=== PATIENT | female | born 1960 | race Caucasian/White ===

== ENCOUNTER 2016-08-15 15:18 | Emergency (ER) | payer MEDICARE, MEDICAID ==
--- NOTE | 2016-08-15 15:58 | ERNOTE ---
Dyspnea - Date Date of Service: 08/15/16 - General Presenting Symptoms: shortness of breath - CASTELAN Time Seen by Provider: 08/15/16 15:28 Source: patient Exam Limitations: no limitations - Immun/Allergies/Home Medications Immunizations: IMMUNIZATION HX History of Influenza Vaccine No Hx Pneumococcal Vaccination No Allergies/Adverse Reactions: Allergies codeine Adverse Reaction (Intermediate, Verified 08/15/16 15:39) itch Home Medications: HOME MEDICATIONS Digoxin [Lanoxin] 0.25 mg PO DAILY 08/15/16 [Last Taken Unknown] Furosemide [Lasix] 40 mg PO DAILY #10 tablet 08/15/16 [Last Taken Unknown] Insulin Detemir [Levemir Flextouch] 35 unit SQ BID 08/15/16 [Last Taken Unknown] Metformin HCl [Metformin HCl ER] 1,000 mg PO BID 08/15/16 [Last Taken Unknown] Potassium Chloride [K-Dur] 20 meq PO DAILY #10 tablet.sa 08/15/16 [Last Taken Unknown] Simvastatin 20 mg PO DAILY 08/15/16 [Last Taken Unknown] Sitagliptin Phosphate [Januvia] 100 mg PO DAILY 08/15/16 [Last Taken Unknown] Warfarin Sodium [Coumadin] 5 mg PO DAILY 08/15/16 [Last Taken Unknown] - History of Present Illness Narrative: 56-year-old female sent to the emergency room from her doctor's office for shortness of breath. Patient states that she does notice her shortness of breath is increased with exercises. Patient denies any recent illness. Date (Duration): 08/15/16 Severity: mild Treatment COIL BINDER: none Initiating event: Reports: none Frequency of episodes: Reports: occassional episodes - castelan Modifying Factors - (Improves): Reports: rest Modifying Factors (Worsens): Reports: activity Associated Symptoms-Dyspnea: Reports: ankle/leg swelling, anxiety. Denies: fever/chills, sweating, chest pain/discomfort Review of Systems - Review of Systems Constitutional: Present: decreased activity level. Absent: recent illness, fever EYE: Present: no symptoms reported ENT: Present: no symptoms reported Respiratory: Present: See HPI, shortness of breath Cardiology: Present: no symptoms reported, See HPI Gastrointestinal/Abdominal: Present: no symptoms reported Genitourinary: Present: no symptoms reported Musculoskeletal: Present: no symptoms reported Skin: Present: no symptoms reported Neurological: Present: no symptoms reported Endocrine: Present: no symptoms reported Hematologic/Lymphatic: Present: no symptoms reported Psych: Present: anxiety, other - recently lost son. states she is anxious. - Patient's Past Medical History Patient History - Medical: Anxiety, Diabetes Type 2 Patient History - Cardiac/Respiratory: CHF, CVA/Stroke, Valvular Heart Disease Patient History - Surgical Procedures: Other Additional Info: valve replacement 1997, patient unsure of which valve. - Social History Smoking Status: Current every day smoker - Immunizations Hx Pneumococcal Vaccination: No History of Influenza Vaccine: No Physical Exam - Physical Exam Narrative: 56-year-old female came to the ED doctor's office for increased shortness of breath. Patient states that she has noticed increased shortness of breath of the last few days. States that it is more noticeable when she is exercising or walking. Patient states that she does some anxiety at this time due to the recent of her son. Also stated that she is due to have her pacemaker battery change that was worried about the procedures well. she has a history of diabetes mellitus but does not check her blood sugar. states she has a history of chf but does not follow a low-sodium diet and has been eating poorly over the last month. General Appearance: Present: wd/wn, alert, no apparent distress Eye Exam: Normal inspection: bilateral Ears, Nose, Throat: Present: normal ENT inspection Neck: Present: normal inspection Respiratory: Present: no respiratory distress, crackles - bases. Absent: respiratory distress, accessory muscle use, decreased breath sounds Cardiovascular/Chest: Present: regular rate, rhythm, no murmur Gastrointestinal/Abdominal: Present: normal bowel sounds Back Exam: Present: normal inspection Extremity Exam: Present: non-tender, normal range of motion - for her. does have residual from CVA, pedal edema, extremity edema - LLE more that right. states that this is normal for her. Neurological Exam: Present: alert, oriented, normal mood/affect Skin Exam: Present: normal color Lymphatic Exam: Present: no adenopathy ED Progress - Results and Orders Results and Orders: elevated D-Dimer, and BNP - Vital Signs Vital Signs: Vital Signs 08/15/16 15:32 Temperature 37.3 C Pulse Rate 96 Respiratory 20 Rate Blood Pressure 120/65 O2 Sat by Pulse 96 Oximetry - EKG EKG: other - v-paced EKG read: Interp. by me - X-Ray X-Ray #1 X-Ray: chest Interpretation: Reviewed by me X-ray Comments: Findings: Left-sided cardiac pacemaker reidentified. Prior median sternotomy changes and valvular prosthesis reidentified. There is cardiac silhouette enlargement. There is central vascular engorgement. There is some scarring within the right lung. There is also scarring within the left lung base. No identifiable pleural effusions or focal consolidations. No pneumothorax. Osseous structures demonstrate some degenerative change. IMPRESSION: 1. Cardiomegaly with some central vascular engorgement. Findings can be seen in early CHF/fluid overload, clinical correlation. Findings are superimposed upon chronic lung disease. Electronically signed by Marco Lui M.D.. - CT/Ultrasound CT/Ultrasound Narrative: Findings: There is adequate opacification of the pulmonary arterial system. No intraluminal filling defects to suggest pulmonary embolism. Median sternotomy wires, post-CABG changes, prosthetic cardiac valve and pacemaker all identified. Cardiomegaly. The aorta shows diffuse atherosclerosis but is normal caliber and course without aneurysmal dilation or evidence for dissection. There is a small right-sided pleural effusion. Associated compressive atelectasis. Underlying chronic scarring of the lungs bilaterally. No consolidation beyond the compressive atelectasis. No pneumothorax. Calcified subcarinal lymph nodes. Degenerative change of the spine and shoulders. No mediastinal or hilar lymphadenopathy. IMPRESSION: 1. NO EVIDENCE FOR PULMONARY EMBOLISM. 2. SMALL RIGHT-SIDED PLEURAL EFFUSION. 3. ADDITIONAL CHRONIC FINDINGS DETAILS ABOVE. Electronically signed by Boby Huizar D.O.. - Progress/Reassessment Chief Complaint: Dyspnea Progress:: Improved Progress Note-Subjective: 08/15/16 19:55 Patient given 80 mg of IV Lasix stated she can breathe better after voiding several times Plan - Plan Plan: Patient is aware she is to follow-up with her primary care physician in the next 3 days she is also to follow up with her geological aide as well. Departure Clinical Impression: CHF (congestive heart failure) Qualifiers: Congestive heart failure type: unspecified congestive heart failure type Congestive heart failure chronicity: acute on chronic Qualified Code(s): I50.9 - Heart failure, unspecified - Departure Disposition: Home Follow Up Needed Condition: Stable Instructions: Heart Failure, Luet-po-Vust Additional Instructions: Make apt with Flaquita Aschoff [phone] Need to monitor daily weight. Make an appointment with her primary care physician within the next 3 days. Very important! Also follow-up with your geological aide. Try to continue to follow a low-sodium diet. Make sure you checked your blood pressure before you take your medications. Return to the emergency room if shortness of breath reoccurs or if the condition worsens Referrals: Devon Ferguson MD [Primary Care Provider] - Flaquita Arita ARNP [[facility]] - Prescriptions: Furosemide [Lasix] 40 mg PO DAILY #10 tablet Potassium Chloride [K-Dur] 20 meq PO DAILY #10 tablet.sa
[2016-08-15 16:01] LABS: Hematocrit 40.6 % (37.0-47.0); Mean Cell Volume 84.1 fl (78-100); Mean Corpuscular Hemoglobin 26.9 pg (27-31); Mean Platelet Volume 9.5 fl (6.0-9.5); Neutrophil # 6.1 K/mm3 (1.3-6.0); Neutrophil % 73.7 % (42-75.0); Platelet Count 206 K/mm3 (150-450); Red Blood Count 4.83 M/mm3 (4.2-5.4); Red Cell Distribution Width 14.1 % (11.5-14.0); White Blood Count 8.3 K/mm3 (4.0-10.5)
[2016-08-15 16:23] LABS: INR 1.73 INR (0.90-1.10)
[2016-08-15 16:30] LABS: Albumin * 3.6 gm/dl (3.4-5.0); Anion Gap 14.7 mmol/L (6.8-13.8); BUN/Creatinine Ratio 30.8 (9.0-21.6); Bilirubin, Total 0.5 mg/dL (0.0-1.1); Ca. Corrected For Albumin 9.2 mg/dL (8.4-10.2); Calcium * 9.2 mg/dL (7.9-10.9); Carbon Dioxide 23.7 mmol/L (24-32.6); Potassium 4.4 mmol/L (3.4-4.6); Total Protein 7.5 gm/dL (6.2-8.2); Troponin I 0.024 ng/ml (0.00-0.10)
[2016-08-15] MEDS ORDERED: FUROSEMIDE 10 MG/ML VIAL IV ONE (18:42)
[2016-08-15] MEDS ORDERED: FUROSEMIDE 10 MG/ML VIAL ONE (18:53)
[2016-08-15 19:05] VITALS: BP 188/89
== END 2016-08-15 20:35 | disposition home or self-care (01) ==
LOC: ER 15:18
DX: I50.9 Heart failure, unspecified (principal); Z72.0 Tobacco use; E11.9 Type 2 diabetes mellitus without complications; Z86.73 Personal history of transient ischemic attack (TIA), and cerebral infarction without residual deficits

== ENCOUNTER 2016-12-02 16:33 | Emergency (ER) | payer MEDICARE, OTHER ==
[2016-12-02] MEDS ORDERED: diphenhydrAMINE HCL 50 MG/ML VIAL IM ONE (16:48)
[2016-12-02] MEDS ORDERED: KETOROLAC TROMETHAMINE 60 MG/2 ML VIAL IM ONE ×2 (16:48→17:17)
[2016-12-02] MEDS ORDERED: METOCLOPRAMIDE HCL 5 MG/ML VIAL IM ONE (16:48)
--- NOTE | 2016-12-02 16:59 | ERNOTE ---
Upper Extremity HPI - Narrative Date of Service: 12/02/16 - General Extremities Pain Location: forearm: right, wrist: right, other: right - upper arm Time Seen by Provider: 12/02/16 16:44 Source: patient Exam Limitations: no limitations - Immun/Allergies/Home Medications Immunizations: IMMUNIZATION HX History of Influenza Vaccine No Hx Pneumococcal Vaccination No Allergies/Adverse Reactions: Allergies Allergy/AdvReac Type Severity Reaction Status Date / Time codeine AdvReac Intermediate itch Verified 12/02/16 16:39 Home Medications: HOME MEDICATIONS Furosemide [Lasix] 40 mg PO DAILY #10 tablet 08/15/16 [Last Taken Unknown] Insulin Detemir [Levemir Flextouch] 35 unit SQ BID 08/15/16 [Last Taken Unknown] Simvastatin 20 mg PO DAILY 08/15/16 [Last Taken Unknown] Warfarin Sodium [Coumadin] 5 mg PO DAILY 08/15/16 [Last Taken Unknown] metFORMIN HCL [Metformin HCl ER] 1,000 mg PO BID 08/15/16 [Last Taken Unknown] sitaGLIPtin PHOSPHATE [Januvia] 100 mg PO DAILY 08/15/16 [Last Taken Unknown] - History of Present Illness Narrative: Pt. comes in with c/o R arm and wrist pain after she was caught between the automatic doors at [facility] just prior to arrival. Pt. states that the doors closed and caught her between them and squeezed her upper arm lower arm wrist and body between the doors. Pt. also states that she developed a headache on the way here. Review of Systems - Review of Systems Constitutional: Present: no symptoms reported. Absent: recent illness, fever, chills, weakness, fatigue, malaise EYE: Present: no symptoms reported ENT: Present: no symptoms reported Respiratory: Present: no symptoms reported. Absent: shortness of breath, cough , wheezing Cardiology: Present: no symptoms reported. Absent: chest pain, palpitations, claudication Gastrointestinal/Abdominal: Present: no symptoms reported Genitourinary: Present: no symptoms reported Musculoskeletal: Present: muscle pain - R upper and lower arm, joint pain - R wrist. Absent: back pain, neck pain Skin: Present: no symptoms reported Neurological: Present: headache. Absent: dizziness/light-headedness, numbness, tingling All Other Systems: All systems neg except as marked - Patient's Past Medical History Patient History - Medical: Anxiety, Diabetes Type 2 Patient History - Cardiac/Respiratory: CHF, CVA/Stroke, Valvular Heart Disease Patient History - Cancer: No Hx of Cancer Patient History - Surgical Procedures: Other Patient History - Other: None - Social History Living Situations: home Abuse History: No History of abuse Drug Use: cocaine - Immunizations Hx Pneumococcal Vaccination: No History of Influenza Vaccine: No Physical Exam - Physical Exam General Appearance: Present: wd/wn, alert, no apparent distress Eye Exam: Normal inspection: bilateral, PERRL: bilateral, EOMI: bilateral Ears, Nose, Throat: Present: normal ENT inspection, normal pharynx Neck: Present: normal inspection, nontender. Absent: lymphadenopathy (R), lymphadenopathy (L) Respiratory: Present: no respiratory distress, normal breath sounds, no accessory muscle use, chest nontender, lungs clear Cardiovascular/Chest: Present: regular rate, rhythm, no murmur, normal peripheral pulses Back Exam: Present: normal inspection, normal range of motion, no CVA tenderness , no vertebral tenderness Extremity Exam: Present: normal range of motion, no edema, joint swelling - R wrist, other - R upper arm and R lower arm not tender just painful to pt.. Absent: bony tenderness Neurological Exam: Present: alert, oriented, normal mood/affect, no motor/ sensory deficits Skin Exam: Present: normal color, warm/dry. Absent: pallor, skin rash ED Progress - Vital Signs Patient's Vital Signs:: I have reviewed the patient's vital signs. Vital Signs: Vital Signs 12/02/16 16:36 Temperature 36.4 C L Pulse Rate 83 Respiratory 12 Rate Blood Pressure 119/67 O2 Sat by Pulse 96 Oximetry - X-Ray X-Ray #1 X-Ray: wrist Interpretation: Interp. by me X-ray Comments: no obvious acute ossious abnormality - Progress/Reassessment Chief Complaint: Upper Extremity Injury/Problem Progress:: Unchanged Departure Clinical Impression: Contusion of arm, right, multiple sites Qualifiers: Encounter type: initial encounter Qualified Code(s): S40.021A - Contusion of right upper arm, initial encounter - Departure Disposition: Home self-care Condition: Good Instructions: Contusion, [id number] Additional Instructions: Please follow up with primary provider in 2-3 days if no improvement. Use heat 20 minutes of every hour for pain and swelling please rest for 24 hours then may return to regular activity. Referrals: Devon Ferguson MD [Primary Care Provider] -
[2016-12-02] MEDS ORDERED: METOCLOPRAMIDE HCL 5 MG/ML VIAL ONE (17:17)
[2016-12-02] MEDS ORDERED: diphenhydrAMINE HCL 50 MG/ML VIAL ONE (17:17)
[2016-12-02] MEDS ORDERED: IBUPROFEN 400 MG TABLET PO ONE (17:27)
[2016-12-02] MEDS ORDERED: IBUPROFEN 400 MG TABLET ONE (17:28)
[2016-12-02 17:37] VITALS: BP 120/72
== END 2016-12-02 17:36 | disposition home or self-care (01) ==
LOC: ER 16:33
DX: S40.021A Contusion of right upper arm, initial encounter (principal); E11.9 Type 2 diabetes mellitus without complications; I50.9 Heart failure, unspecified; W23.0XXA Caught, crushed, jammed, or pinched between moving objects, initial encounter; Y92.512 Supermarket, store or market as the place of occurrence of the external cause; Z79.01 Long term (current) use of anticoagulants

== ENCOUNTER 2016-12-13 06:06 | Emergency (ER) | payer MEDICARE, OTHER ==
--- NOTE | 2016-12-13 06:37 | ERNOTE ---
<Chacho Castaneda - Last Filed: 12/13/16 07:49> Back Pain ER HPI Time Seen by Provider: 12/13/16 06:24 Source: patient Exam Limitations: no limitations Immunizations: IMMUNIZATION HX Immunizations Up to Date Yes History of Influenza Vaccine No Hx Pneumococcal Vaccination No Allergies/Adverse Reactions: Allergies codeine Adverse Reaction (Intermediate, Verified 12/13/16 06:17) itch Home Medications: HOME MEDICATIONS Furosemide [Lasix] 40 mg PO DAILY #10 tablet 08/15/16 [Last Taken Unknown] Insulin Detemir [Levemir Flextouch] 35 unit SQ BID 08/15/16 [Last Taken Unknown] Simvastatin 20 mg PO DAILY 08/15/16 [Last Taken Unknown] Warfarin Sodium [Coumadin] 5 mg PO DAILY 08/15/16 [Last Taken Unknown] metFORMIN HCL [Metformin HCl ER] 1,000 mg PO BID 08/15/16 [Last Taken Unknown] sitaGLIPtin PHOSPHATE [Januvia] 100 mg PO DAILY 08/15/16 [Last Taken Unknown] Ciprofloxacin HCl [Cipro] 500 mg PO BID #20 tab 12/13/16 [Last Taken Unknown] Narrative: Pt states she had onset of diffuse abdominal pain and back pain last night. She states her abdomen seems to be distended which makes it harder for her to breathe if she is sitting up. He bowels have not been moving regularly Timing: Reports: getting worse Quality/Severity: Reports: moderate, fullness Location of pain: Reports: lower back - and abdomen Activities at Onset: Reports: none Recent Injury?: Reports: no Review of Systems - Review of Systems Constitutional: Absent: recent illness, fever, chills EYE: Present: no symptoms reported ENT: Present: no symptoms reported Respiratory: Present: shortness of breath, orthopnea Cardiology: Absent: chest pain Gastrointestinal/Abdominal: Present: See HPI, diarrhea. Absent: nausea, vomiting Genitourinary: Present: decreased urinary output Musculoskeletal: Present: back pain Skin: Present: no symptoms reported Neurological: Present: no symptoms reported Endocrine: Present: no symptoms reported Hematologic/Lymphatic: Present: no symptoms reported Psych: Present: no symptoms reported - Patient's Past Medical History Patient History - Medical: Anxiety, Diabetes Type 2 Patient History - Cardiac/Respiratory: CHF, CVA/Stroke, Valvular Heart Disease Patient History - Cancer: No Hx of Cancer Patient History - Surgical Procedures: Other Patient History - Other: None LMP (females 10-50): Menopausal - Social History Living Situations: other Abuse History: No History of abuse Psych History: Hx of Anxiety Smoking Status: Current every day smoker Have you smoked in the past 12 months: Yes Alcohol Use: none Drug Use: none - Immunizations Immunizations Up to Date: Yes Hx Pneumococcal Vaccination: No History of Influenza Vaccine: No Physical Exam - Physical Exam General Appearance: Present: wd/wn, alert, no apparent distress Neck: Present: normal inspection, supple, full range of motion Respiratory: Present: no respiratory distress, normal breath sounds, lungs clear Cardiovascular/Chest: Present: regular rate, rhythm, no murmur Gastrointestinal/Abdominal: Present: normal bowel sounds, tenderness - diffuse. Absent: guarding, rebound Back Exam: Present: normal range of motion, no vertebral tenderness Extremity Exam: Present: normal inspection, normal range of motion, extremity edema - left leg Neurological Exam: Present: alert, oriented, normal mood/affect, motor weakness - Left UE from previous CVA. Skin Exam: Present: normal color, warm/dry Lymphatic Exam: Present: no adenopathy ED Progress - Results and Orders Patient's Lab Results:: I have reviewed the patient's lab results. Results and Orders: Laboratory Tests 12/13/16 12/13/16 12/13/16 06:40 06:40 06:40 WBC 13.9 H Hgb 13.6 Hct 39.0 Plt Count 258 PT 14.2 H INR (Anticoag Therapy) 1.37 H Sodium 135 Potassium 4.2 Chloride 100 Carbon Dioxide 20.4 L Anion Gap 18.8 H BUN 70 H D Creatinine 2.41 H D Est GFR (Non-Af Amer) 22 L D BUN/Creatinine Ratio 29.0 H Random Glucose 210 H Calcium 10.3 Calcium Adj for Albumin 9.7 Total Bilirubin 0.9 AST 53 H ALT 40 Alkaline Phosphatase 62 Total Protein 8.7 H Albumin 4.4 Amylase 56 Lipase 142 - Vital Signs Patient's Vital Signs:: I have reviewed the patient's vital signs. Vital Signs: Vital Signs 12/13/16 06:10 Temperature 37.1 C Pulse Rate 95 Respiratory 16 Rate Blood Pressure 152/93 O2 Sat by Pulse 97 Oximetry - X-Ray X-Ray #1 X-Ray: abdomen Interpretation: Interp. by ks X-ray Comments: non specific bowel gas pattern. Pacemaker battery present RLQ. - Progress/Reassessment Chief Complaint: Back Pain - Transfer of Care Physician Sign Out: Chacho Castaneda Receiving Physician: Emily Doll Pending Results: Labs - UA collection/ results Expected Disposition: Discharge Departure Clinical Impression: Pyelonephritis Renal failure Qualifiers: Renal failure chronicity: acute on chronic Acute renal failure type: unspecified Chronic kidney disease stage: unspecified stage Qualified Code(s): N17.9 - Acute kidney failure, unspecified; N18.9 - Chronic kidney disease, unspecified - Departure Disposition: Home self-care Condition: Fair Instructions: Pyelonephritis, Adult, [id number] Additional Instructions: take the antibiotic as prescribed stop the lasix till you see Dr Sandoval, do not take any more ibuprofen as it hurts your kidneys and you are on coumadin as well have your blood work done BEFORE you see him on Friday Referrals: Devon Ferguson MD [Primary Care Provider] - 12/16/16 1:00 pm Prescriptions: Ciprofloxacin HCl [Cipro] 500 mg PO BID #20 tab <Emily Doll - Last Filed: 12/13/16 08:49> Back Pain ER HPI Source: patient Exam Limitations: no limitations Immunizations: IMMUNIZATION HX Immunizations Up to Date Yes History of Influenza Vaccine No Hx Pneumococcal Vaccination No Narrative: Patient states that she started to have diffuse abdominal pain last night, as well as back pain. She also felt like she had a fever and took multiple ibuprofen around 03:00, no dysuria but strong smell of urine. Date (Duration): 12/12/16 - Patient's Past Medical History Patient History - Medical: Diabetes Type 2 Patient History - Cardiac/Respiratory: CHF, CVA/Stroke, Hyperlipidemia, Valvular Heart Disease Patient History - Surgical Procedures: Cholecystectomy, Pacemaker Physical Exam - Physical Exam General Appearance: Present: wd/wn, alert, no apparent distress Respiratory: Present: no respiratory distress, normal breath sounds, no accessory muscle use, lungs clear Cardiovascular/Chest: Present: regular rate, rhythm, no murmur Gastrointestinal/Abdominal: Present: normal bowel sounds, soft, distended. Absent: tenderness Back Exam: Present: no vertebral tenderness, CVA tenderness (L) - mild Neurological Exam: Present: alert, oriented, normal mood/affect Skin Exam: Present: normal color, warm/dry ED Progress - Results and Orders Patient's Lab Results:: I have reviewed the patient's lab results. - Vital Signs Patient's Vital Signs:: I have reviewed the patient's vital signs. Vital Signs: Vital Signs 12/13/16 12/13/16 06:10 07:25 Temperature 37.1 C Pulse Rate 95 63 Respiratory 16 15 Rate Blood Pressure 152/93 144/90 O2 Sat by Pulse 97 96 Oximetry - Progress/Reassessment Progress Note-Subjective: 12/13/16 08:19 examined patient and reviewed history 12/13/16 08:[address] Sandoval, will start on cipro, hold lasix, no NSAIDs, okay to order out patient lab after the weekend and follow up with him urine cx from 2013 grew e coli resistant to bactrim, sensitive to cipro and levaquin 12/13/16 08:38 discussed plan with patient
[2016-12-13 06:49] LABS: Hemoglobin 13.6 gm/dL (12.5-16.0); Mean Cell Volume 81.6 fl (78-100); Mean Corpuscular Hemoglobin 28.5 pg (27-31); Mean Corpuscular Hgb Conc 34.9 g/dl (32-36); Mean Platelet Volume 9.4 fl (6.0-9.5); Neutrophil # 9.8 K/mm3 (1.3-6.0); Neutrophil % 70.6 % (42-75.0); Platelet Count 258 K/mm3 (150-450); Red Blood Count 4.78 M/mm3 (4.2-5.4); Red Cell Distribution Width 15.2 % (11.5-14.0); White Blood Count 13.9 K/mm3 (4.0-10.5)
[2016-12-13 06:57] LABS: Prothrombin Time (Patient) 14.2 Seconds (9.4-11.4)
[2016-12-13 07:00] LABS: INR 1.37 INR (0.90-1.10)
[2016-12-13 07:03] LABS: Albumin * 4.4 gm/dl (3.4-5.0); Anion Gap 18.8 mmol/L (6.8-13.8); Bilirubin, Total 0.9 mg/dL (0.0-1.1); Ca. Corrected For Albumin 9.7 mg/dL (8.4-10.2); Calcium * 10.3 mg/dL (7.9-10.9); Carbon Dioxide 20.4 mmol/L (24-32.6); Potassium 4.2 mmol/L (3.4-4.6); Total Protein 8.7 gm/dL (6.2-8.2)
[2016-12-13] MEDS ORDERED: NORMAL SALINE 1,000 ML IV ONE (07:37)
[2016-12-13] MEDS ORDERED: MAG HYDROX/ALUMINUM HYD/SIMETH 30 ML UDC PO ONE (07:41)
[2016-12-13 08:12] LABS: Urine Bilirubin Negative (NEGATIVE); Urine Blood Negative /ul (NEGATIVE); Urine Ketone Negative (NEGATIVE); Urine Nitrite Negative (NEGATIVE); Urine Protein 30 mg/dL (NEGATIVE); Urine Specific Gravity 1.025 SP.GR. (1.005-1.010); Urine Urobilinogen Normal (NORMAL); Urine pH 5.5 pH (5.0-7.0)
[2016-12-13 08:24] LABS: Urine Appearance Clear; Urine Bacteria 2+; Urine Color Yellow; Urine RBC TRACE /hpf (0-5)
[2016-12-13 08:25] LABS: Urine Hyaline Cast 0-5 /LPF
[2016-12-13] MEDS ORDERED: CIPROFLOXACIN HCL 250 MG TABLET PO ONE (08:39)
[2016-12-13] MEDS ORDERED: CIPROFLOXACIN HCL 250 MG TABLET ONE (08:44)
[2016-12-13 09:06] VITALS: BP 99/79
== END 2016-12-13 09:06 | disposition home or self-care (01) ==
LOC: ER 06:06
DX: N12 Tubulo-interstitial nephritis, not specified as acute or chronic (principal); N18.9 Chronic kidney disease, unspecified; E11.9 Type 2 diabetes mellitus without complications; Z86.73 Personal history of transient ischemic attack (TIA), and cerebral infarction without residual deficits; E78.5 Hyperlipidemia, unspecified